=== PATIENT | male | born 1960 | race Caucasian/White ===

== ENCOUNTER 2024-04-12 08:31 | Outpatient (OUT) | payer MEDICARE, MEDICAID, SELFPAY ==
[2024-04-12 08:55] LABS: Basophils Absolute Auto 0.1 10^3/uL (0.0-0.1); Basophils Percent Auto 0.9 % (0.2-2.0); Eosinophils Absolute Auto 0.2 10^3/uL (0.0-0.7); Eosinophils Percent Auto 2.8 % (0.9-7.0); Hematocrit 44.6 % (42.0-54.0); Hemoglobin 14.6 g/dL (14.0-18.0); Immature Granulocytes Abs Auto 0.08 10^3/uL (0.00-0.03); Immature Granulocytes Pct Auto 0.9 % (0.0-0.5); Lymphocytes Absolute Auto 2.4 10^3/uL (1.2-3.8); Lymphocytes Percent Auto 27.6 % (20.5-60.0); Mean Corpuscular HGB Conc 32.7 g/dL (29.9-35.2); Mean Corpuscular Hemoglobin 32.2 pg (25.9-34.0); Mean Corpuscular Volume 98.2 fL (80.0-94.0); Mean Platelet Volume 10.1 fL (9.5-13.5); Monocytes Absolute Auto 0.7 10^3/uL (0.3-0.8); Monocytes Percent Auto 8.5 % (1.7-12.0); Neutrophils Absolute Auto 5.1 10^3/uL (1.4-6.5); Neutrophils Percent Auto 59.3 % (43.0-75.0); Platelet Count 257 10^3/uL (150-450); Red Blood Count 4.54 10^6/uL (4.70-6.10); Red Cell Distribution Width 13.9 % (11.0-15.0); White Blood Count 8.6 10^3/uL (4.0-11.0)
[2024-04-12 09:48] LABS: Prostate Specific Antigen Scrn 16.19 ng/mL (<=4.00)
[2024-04-12 10:16] LABS: Microalbumin Urine Random 1.4 mg/dL (<=30.0)
[2024-04-12 11:18] LABS: Alanine Aminotransferase 22 U/L (16-63); Albumin Globulin Ratio 0.9; Albumin Level 3.5 g/dL (3.4-5.0); Alkaline Phosphatase 75 U/L (46-116); Anion Gap 12.4; Aspartate Amino Transferase 17 U/L (15-37); BUN Creatinine Ratio 12.7; Bilirubin Total 0.3 mg/dL (0.2-1.0); Calcium 10.3 mg/dL (8.5-10.1); Carbon Dioxide 27.1 mmol/L (21.0-32.0); Chloride 102 mmol/L (98-107); Chol HDL Ratio 6.7; Cholesterol 234 mg/dL (<=200); Estimated GFR (African America 52 (>=60 mL/min/1.73m^2); Estimated GFR (Non-African Ame 43 (>=60 mL/min/1.73m^2); Globulin 3.7 g/dL; Glucose 148 mg/dL (74-106); HDL Cholesterol 35 mg/dL (40-60); Potassium 4.5 mmol/L (3.5-5.1); Sodium 137 mmol/L (136-145); Total Protein 7.2 g/dL (6.4-8.2); Triglycerides 276 mg/dL (<=150); VLDL CHOLESTEROL 55.2 mg/dL
== END 2024-04-12 08:32 | disposition home or self-care (01) ==
LOC: LAB 08:31
PROVIDERS: PCP Family Medicine; Visit Provider Family Medicine
DX: N40.0 Benign prostatic hyperplasia without lower urinary tract symptoms (principal); E11.9 Type 2 diabetes mellitus without complications; I10 Essential (primary) hypertension
CPT/HCPCS: 36415; 80053; 80061; 82043; 85025; G0103

== ENCOUNTER 2024-07-12 13:02 | Outpatient (OUT) | payer MEDICARE, MEDICAID, SELFPAY ==
--- NOTE | 2024-07-12 13:29 | MR_ITS ---
The [address] [address] Patient Name: FRANDY BARNES MRN: [id number] date: 1960 Sex: M Assigned Patient Location: LAB Current Patient Location: LAB Accession/Order Number: [id number] Exam Date: 07/12/2024 14:00 Report Date: 07/12/2024 18:09 At the request of: ANUJ URENA Procedure: MR angio head wo con MRA BRAIN WITHOUT CONTRAST, 07/12/2024. HISTORY: Dizziness. COMPARISON: None. TECHNIQUE: Multiplanar, multisequence MRI imaging of the brain without contrast. Axial 3-D time of flight MRA images obtained. Multiple reconstructed MIP images obtained. FINDINGS: Paranasal sinuses clear. Mastoid air cells are clear. Nasopharynx normal. Senior Network [employer] spaces normal. Orbital contents unremarkable. Mild generalized brain atrophy. No hydrocephalus. Mild chronic microvascular ischemic changes. No extra-axial fluid collection or mass effect. No diffusion restriction. No evidence of acute ischemic infarction. No hemorrhagic lesion. No significant stenosis of the distal internal carotid arteries. Anterior cerebral arteries are normal. The middle cerebral arteries are normal. Intradural segments of the vertebral arteries are normal. Basilar artery normal. Posterior cerebral arteries are normal. Cerebellar arteries are patent. No proximal arterial occlusion. No aneurysm or vascular malformation. MR/MR angio head wo con IMPRESSION: 1. No acute ischemic infarction. No intracranial masses. 2. Mild brain atrophy and chronic microvascular ischemic changes. 3. Normal MRA of the brain. Electronically authenticated by: STAN MALONE Date: 07/12/2024 18:09
--- NOTE | 2024-07-12 13:29 | MR_ITS ---
The [place] [id number] Patient Name: FRANDY BARNES MRN: [id number] date: 1960 Sex: M Assigned Patient Location: LAB Current Patient Location: LAB Accession/Order Number: [id number] Exam Date: 07/12/2024 14:00 Report Date: 07/12/2024 18:09 At the request of: ANUJ URENA Procedure: MR angio neck wo con MRA NECK WITHOUT CONTRAST, 07/12/2024. HISTORY: Dizziness. COMPARISON: None. TECHNIQUE: Axial 2-D and 3-D time of flight MRA images obtained through the neck. Multiple reconstructed MIP images obtained. FINDINGS: No stenosis of the left common carotid artery. Atherosclerotic plaque in the proximal left ICA results in a 50% proximal left ICA stenosis. There is some plaque in the proximal right ICA. There is a 25% proximal right ICA stenosis. The left vertebral artery is dominant. No significant stenosis of the left vertebral artery. The right vertebral artery is hypoplastic. There appears to be multiple areas of moderate and severe stenosis throughout the right vertebral artery. MR/MR angio neck wo con IMPRESSION: 1. There is a 50% stenosis of the proximal left ICA. There is a 25% stenosis of the proximal right ICA. 2. Left vertebral artery is dominant. No significant stenosis of the left vertebral artery. 3. Right vertebral artery is hypoplastic. There appears to be multifocal areas of severe stenosis throughout the right vertebral artery in the neck. Recommend follow up CT angiogram of the neck. Electronically authenticated by: STAN MALONE Date: 07/12/2024 18:09
[2024-07-12 13:35] LABS: Estimated GFR (African America 41 (>=60 mL/min/1.73m^2); Estimated GFR (Non-African Ame 34 (>=60 mL/min/1.73m^2)
== END 2024-07-12 13:03 | disposition home or self-care (01) ==
LOC: LAB 13:06
PROVIDERS: PCP Family Medicine; Visit Provider Family Medicine
DX: G45.8 Other transient cerebral ischemic attacks and related syndromes (principal)
CPT/HCPCS: 36415; 70544; 70547; 82565

== ENCOUNTER 2024-11-14 09:12 | Outpatient (OUT) | payer MEDICARE, MEDICAID, SELFPAY ==
--- OUTSIDE RECORDS SUMMARY | 2024-11-14 09:16 | XMS_ITS | CCD ---
Author Organization [facility] Care Team Providers Care Methods Engineer Name Role Phone HOUSE, DR LESLIE Primary Care Unavailable ELIS, DR WALTER Moreno Consulting Unavailabl e REINECK, DR WALTER Moreno Attending Unavailabl e REINECK, DR WALTER Moreno Admitting Unavailabl e CAREN, DARRYL KNOTT Consulting Unavailable HOUSE, DR LESLIE Primary Care Unavailable HOUSE, DR LESLIE Consulting Unavailable HOUSE, DR LESLIE Attending Unavailable HOUSE, DR LESLIE Admitting Unavailable HOUSE, DR LESLIE Primary Care Unavailable KATKO, VÍCTOR Shaw Attending Unavailable KATKO, VÍCTOR Shaw Admitting Unavailable KATKO, VÍCTOR Shaw Consulting Unavailable REIER, RAPHAEL Consulting Unavailable HOUSE, ANUJ Reina Primary Care Unavailable HOUSE, DO ANUJ Reina Attending Unavailable HOUSE, ANUJ P Primary Care Unavailable HOUSE, DO ANUJ P Attending Unavailable HOUSE, ANUJ P Primary Care Unavailable HOUSE, DO ANUJ P Attending Unavailable HOUSE, ANUJ P Primary Care Unavailable HOUSE, DO ANUJ Reina Attending Unavailable HOUSE, DO ANUJ Reina Admitting Unavailable HOUSE, ANUJ P Primary Care Unavailable HOUSE, DO ANUJ P Attending Unavailable Allergies Allergy Classification Reported Allergen(s) Allergy Type Date of Onset Reaction(s) Facility (1 source) Chocolate Drug allergy (disorder) 2 [facility] (1 source) febuxostat Drug Allergy 4 [facility] (2 sources) GRAPEFRUIT EXTRACT; Translations: [Grapefruit] Drug Allergy 4 [facility] (1 source) torsemide Drug Allergy 4 [facility] (1 source) Chocolate; Translations: [Chocolate] Propensity to adverse reactions to food (disorder) [facility] Rep[facility] Problems Active Problems Problem Classification Problem Date Documented Da te Episodic/Chronic Diabetes mellitus without complication (4 sources) Type 2 diabetes mellitus without complications; Translations: [TYPE 2 DM WITHOUT COMPLICATIONS] Onset: 03-24-2022 Chronic E Codes: Fall (1 source) Fall on and from ladder, initial encounter; Translations: [FALL ON AND FROM LADDER INITIAL ENC] Onset: 11-22-2021 Episodic Fracture of upper limb (1 source) Other nondisplaced fracture of base of first metacarpal bone, left hand, initial encounter for closed fracture; Translations: [OTH NDSP FX B 1ST MC BN LH INIT BERNARDO] Onset: 11-22-2021 Episodic Other connective tissue disease (3 sources) Pain in left finger(s); Translations: [PAIN IN LEFT FINGERS] Onset: 11-21-2021 Episodic Substance-related disorders (1 source) Nicotine dependence, cigarettes, uncomplicated; Translations: [NICOTINE DEPEND CIGARETTES UNCOMP] Onset: 05-02-2021 Chronic Past or Other Problems Problem Classification Problem Date Documented Da te Episodic/Chronic Other eye disorders (3 sources) Other specified disorders of eye and adnexa; Translations: [OTHER SPEC DISORDERS EYE AND ADNEXA] Onset: 05-01-2021 Episodic Other eye disorders (1 source) Ocular pain, left eye; Translations: [OCULAR PAIN LEFT EYE] Onset: 05-02-2021 Episodic Superficial injury; contusion (1 source) Injury of conjunctiva and corneal abrasion without foreign body, left eye, initial encounter; Translations: [INJ CONJ AND CA W/O FB LT EYE INITIAL] Onset: 05-02-2021 Episodic Results Test Name Value Interpretation Reference Range Facil it Lab - Other Lab [facility] - Other Lab Results [id number] 1#1.00OTGTIFF [facility] Rad - Other Radiology Report on 07-13-2024 Rad - Other Radiology Report [id number] 1#1.00OTGTIFF [facility] Lab - Other Lab [facility] - Other Lab Results [id number] 24#1.00[facility]GTIFF [facility] Lab - Other Lab Results [id number] 73#1.00[facility]IFF [facility] XR HAND LT MIN 3Von 11-22-19 22 XR HAND LT MIN 3V EXAM: XR HAND LT MIN 3V HISTORY: Unspecified fall Left first and second metacarpal pain status post fall from ladder. COMPARISON: None. FINDINGS: 3 views of the left hand obtained. The distal ulna and radius appear intact. Carpal bones and joint space appear intact. The first metacarpal or base of the thumb demonstrates an oblique intra-articular nondisplaced fracture without appreciable angulation. There is no significant distraction at the articular surface. Remaining osseous structures and joint space about the hand intact. IMPRESSION: 1. Acute intra-articular nondisplaced oblique fracture involving base of first metacarpal. 2. Remaining osseous structures intact. Electronically authenticated by: PHILLIP RAY Date: 2021-11-21 20:20 Normal [facility] CBC AUTO DIFFon 09-26-2021 BASO # 0.1 103/ul Normal 0.0-0.1 [facility] Comment on above: Performed By: #### C BC #### [facility] [address] [place] [address] Dr. Josette Mcfarland Basophils/100 WBC (Bld) 0.6 % Normal 0.2-2.0 [facility] Comment on above: Performed By: #### C BC #### [facility] [address] [place] [address] Dr. Josette Mcfarland EO # 0.2 103/ul Normal 0.0-0.7 [facility] Comment on above: Performed By: #### C BC #### [facility] [address] [place] [address] Dr. Josette Mcfarland Eosinophils/100 WBC (Bld) 1.2 % Normal 0.9-7.0 [facility] Comment on above: Performed By: #### C BC #### [facility] [address] [place] [address] Dr. Josette Mcfarland Erythrocyte distribution width (RBC) [Ratio] 14.1 % Normal 11.0-15.0 [facility] Comment on above: Performed By: #### C BC #### [facility] [address] [place] [address] Dr. Josette Mcfarland Hematocrit (Bld) [Volume fraction] 46.5 % Normal 42.0-54.0 [facility] Comment on above: Performed By: #### C BC #### [facility] [address] [place] [address] Dr. Josette Mcfarland Hemoglobin (Bld) [Mass/Vol] 15.5 g/dL Normal 14.0-18.0 [facility] Comment on above: Performed By: #### C BC #### [facility] [address] [place] [address] Dr. Josette Mcfarland IG # 0.11 10e3/ul Critically high 0.00-0.03 [facility] Comment on above: Performed By: #### C BC #### [facility] [address] [place] [address] Dr. Josette Mcfarland IG % 0.9 % Critically high 0.0-0.5 [facility] Comment on above: Performed By: #### C BC #### [facility] [address] [place] [address] Dr. Josette Mcfarland LYMPH # 2.4 103/ul Normal 1.2-3.8 [facility] Comment on above: Performed By: #### C BC #### [facility] [address] [place] [address] Dr. Josette Mcfarland Lymphocytes/100 WBC (Bld) 18.8 % Critically low 20.5-60.0 [facility] Comment on above: Performed By: #### C BC #### [facility] [address] [place] [address] Dr. Josette Mcfarland MANUAL DIFF REQ NO Normal [facility] Comment on above: Performed By: #### C BC #### [facility] [address] [place] [address] Dr. Josette Mcfarland MCH (RBC) [Entitic mass] 31.6 pg Normal 25.9-34.0 [facility] Comment on above: Performed By: #### C BC #### [facility] [address] [place] [address] Dr. Josette Mcfarland MCHC (RBC) [Mass/Vol] 33.3 g/dL Normal 29.9-35.2 [facility] Comment on above: Performed By: #### C BC #### [facility] [address] [address] [address] Josette Mcfarland MCV (RBC) [Entitic vol] 94.7 fL Critically high 80.0-94.0 [facility] Comment on above: Performed By: #### C BC #### [facility] [address] [place] [address] Dr. Josette Mcfarland MONO # 1.0 103/ul Critically high 0.3-0.8 [facility] Comment on above: Performed By: #### C BC #### [facility] [address] [place] [address] Dr. Josette Mcfarland Monocytes/100 WBC (Bld) 7.6 % Normal 1.7-12.0 [facility] Comment on above: Performed By: #### C BC #### [facility] [address] [place] [address] Dr. Josette Mcfarland NEUT # 8.9 103/ul Critically high 1.4-6.5 [facility] Comment on above: Performed By: #### C BC #### [facility] [address] [place] [address] Dr. Josette Mcfarland Neutrophils/100 WBC (Bld) 70.9 % Normal 43.0-75.0 [facility] Comment on above: Performed By: #### C BC #### [facility] [address] [place] [address] Dr. Josette Mcfarland Platelet mean volume (Bld) [Entitic vol] 10.1 fL Normal 9.5-13.5 [facility] Comment on above: Performed By: #### C BC #### [facility] [address] [place] [address] Dr. Josette Mcfarland PLT 280 103/ul Normal 150-450 [facility] Comment on above: Performed By: #### C BC #### [facility] [address] [place] [address] Dr. Josette Mcfarland RBC 4.91 106/ul Normal 4.70-6.10 [facility] Comment on above: Performed By: #### C BC #### [facility] [address] [address] [address] Josette Mcfarland WBC 12.5 103/ul Critically high 4.0-11.0 [facility] Comment on above: Performed By: #### C BC #### [facility] [address] [address] [address] Josette Mcfarland GLYCOHEMOGLOBIN A1Con 2021 ADA RECOMMENDATION ADA THERAPEUTIC TARGET 6.0 - 7.0 ACTION SUGGESTED > 7.0 Normal [facility] Comment on above: Performed By: #### A 1C #### [facility] [address] [place] [address] Dr. Josette Mcfarland Glucose [Mass/Vol] 131 mg/dL Normal [facility] Comment on above: Performed By: #### A 1C #### [facility] [address] [place] [address] Dr. Josette Mcfarland HbA1c (Bld) [Mass fraction] 6.2 % Critically high <=6.0 [facility] Comment on above: Performed By: #### A 1C #### [facility] [address] [place] [address] Dr. Josette Mcfarland MICROALBUMIN, RAND URon 09-04 mALB <1.3 Normal <=30.0 [facility] Comment on above: Performed By: #### M ALBR #### [facility] [address] [place] [address] Dr. Josette Mcfarland PROF 14(COMP METB)on 022 Albumin [Mass/Vol] 3.7 g/dL Normal 3.4-5.0 [facility] Comment on above: Performed By: #### C MP #### [facility] [address] [place] [address] Dr. Josette Mcfarland Albumin/Globulin [Mass ratio] 1.0 {ratio} Normal [facility] Comment on above: Performed By: #### C MP #### [facility] [address] [address] [address] Josette Mcfarland ALP [Catalytic activity/Vol] 79 U/L Normal 46-116 [facility] Comment on above: Performed By: #### C MP #### [facility] [address] [address] [address] Josette Mcfarland ALT [Catalytic activity/Vol] 21 U/L Normal 16-63 [facility] Comment on above: Performed By: #### C MP #### [facility] [address] [address] [address] Josette Mcfarland Anion gap [Moles/Vol] 14.6 mmol/L Normal [facility] Comment on above: Performed By: #### C MP #### [facility] [address] [address] [address] Josette Mcfarland AST [Catalytic activity/Vol] 17 U/L Normal 15-37 [facility] Comment on above: Performed By: #### C MP #### [facility] [address] [address] [address] Josette Mcfarland Bilirubin [Mass/Vol] 0.5 mg/dL Normal 0.2-1.3 [facility] Comment on above: Performed By: #### C MP #### [facility] [address] [address] [address] Josette Mcfarland Calcium [Mass/Vol] 9.2 mg/dL Normal 8.5-10.1 [facility] Comment on above: Performed By: #### C MP #### [facility] [address] [address] [address] Josette Mcfarland Chloride [Moles/Vol] 104 mmol/L Normal 98-107 [facility] Comment on above: Performed By: #### C MP #### [facility] [address] [address] [address] Josette Mcfarland CO2 [Moles/Vol] 24.8 mmol/L Normal 22.0-30.0 [facility] Comment on above: Performed By: #### C MP #### [facility] [address] [address] [address] Josette Mcfarland Creatinine [Mass/Vol] 1.72 mg/dL Critically high 0.66-1.25 [facility] Comment on above: Performed By: #### C MP #### [facility] [address] [address] [address] Josette Mcfarland EGFR-AF TANZANIAN 50 mL/min/1.73m2 Critically low >=60 [facility] Comment on above: Performed By: #### C MP #### [facility] [address] [address] [address] Josette Mcfarland EGFR-NON AF TANZANIAN 41 mL/min/1.73m2 Critically low >=60 [facility] Comment on above: Performed By: #### C MP #### [facility] [address] [address] [address] Josette Mcfarland Globulin (S) [Mass/Vol] 3.8 g/dL Normal [facility] Comment on above: Performed By: #### C MP #### [facility] [address] [address] [address] Josette Mcfarland Glucose [Mass/Vol] 137 mg/dL Critically high 74-[address] [facility] Comment on above: Performed By: #### C MP #### [facility] [address] [address] [address] Josette Mcfarland Potassium [Moles/Vol] 4.4 mmol/L Normal 3.4-5.0 [facility] Comment on above: Performed By: #### C MP #### [facility] [address] [address] [address] Josette Mcfarland Protein [Mass/Vol] 7.5 g/dL Normal 6.1-8.2 [facility] Comment on above: Performed By: #### C MP #### [facility] [address] [address] [address] Josette Mcfarland Sodium [Moles/Vol] 139 mmol/L Normal 137-145 [facility] Comment on above: Performed By: #### C MP #### [facility] [address] [address] [address] Josette Mcfarland Urea nitrogen [Mass/Vol] 30.0 mg/dL Critically high 7.0-18.0 [facility] Comment on above: Performed By: #### C MP #### [facility] [address] [place], [place] [address] Dr. Josette Mcfarland Urea nitrogen/Creatinine [Mass ratio] 17.4 mg/mg Normal [facility] Comment on above: Performed By: #### C MP #### [facility] [address] [place], [place] [address] Dr. Josette Mcfarland Encounters Encounter Date Encounter Type Care Provider Facility Start: 11-01-2024 ambulatory ANUJ URENA Facilit y:[facility] Start: 10-26-2024 ambulatory ANUJ Reina HOUSE Facilit y:[facility] Start: 08-17-2024 ambulatory ANUJ Reina HOUSE Facilit y:[facility] Start: 06-22-2024 End: 06-22-2024 ambulatory DO ANUJ URENA [facility] Start: 04-27-2024 End: 04-27-2024 ambulatory ANUJ URENA Facility:[facility] Start: 11-21-2021 End: 11-21-[address] ANUJ URENA Facility:[facility] Start: 09-26-2021 End: 09-27-[address] ANUJ URENA Facility:[facility] Start: 05-01-2021 End: 05-01-[address] ANUJ URENA Facility:[facility] Payers Date Payer Category Payer Private Health Insurance [id number] 2022 Private Health Insurance [id number] 1960 Unknown [id number] 2.16.84 [id number] 1960 Unknown [id number] 2.16.84 [id number] 1962 Unknown [id number] 2.16.84 [id number] 1962 Unknown [id number] 2.16.8 [id number] 1962 Unknown [id number] 2.16.8 [id number] 1962 Unknown [id number] 2.16.8 [id number] 1962 Unknown [id number] 2.16.8 [id number] 1962 Unknown [id number] 2.16.8 [id number] 1957 Medicaid [id number] 1957 Medicare [id number] Medication management note 10-11-2024 Note Date & Type Note Facility 10-11-2024 Note Entered by JUWAN URENA DO on October 11, 2024 07:42:43 EDT From: ANUJ URENA DO To: [facility] Sent: 10/11/2024 07:42:43 EDT Subject: Medication Management Submitted: Complete:esomeprazole (esomeprazole 40 mg oral delayed release capsule) Signed by ANUJ URENA DO 10/11/2024 07:42:00 EDT Approved with modifications: esomeprazole (esomeprazole magnesium 40 mg capsule,delayed release) TAKE 1 CAPSULE BY MOUTH DAILY Qty: 30 cap(s) Days Supply: 30 Refills: 5 Substitutions Allowed Route To Pharmacy - [facility] From: [facility] To: ANUJ URENA DO Sent: October 10, 2024 12:23:47 PM CDT Subject: Medication Management Due: October 11, 2024 12:10:11 AM CDT On Hold Pending Signature Drug: esomeprazole (esomeprazole 40 mg oral delayed release capsule), TAKE 1 CAPSULE BY MOUTH DAILY Quantity: 30 cap(s) Days Supply: 30 Refills: 5 Substitutions Allowed Notes from Pharmacy: This prescription was filled on 01/09/2024. Any refills authorized will be placed on file. Dispensed Drug: esomeprazole (esomeprazole 40 mg oral delayed release capsule), TAKE 1 CAPSULE BY MOUTH DAILY Quantity: 30 cap(s) Days Supply: 30 Refills: 5 Substitutions Allowed Notes from Pharmacy: [facility] Medication management note 10-04-2024 Note Date & Type Note Facility 10-04-2024 Note Entered by JUWAN URENA DO on October 04, 2024 16:06:58 EDT From: ANUJ URENA DO To: [facility] Sent: 10/04/2024 16:06:58 EDT Subject: Medication Management Submitted: Complete:SITagliptin (Januvia 100 mg oral tablet) Signed by ANUJ URENA DO 10/04/2024 16:06:00 EDT Approved with modifications: SITagliptin (Januvia 100 mg tablet) TAKE 1 TABLET BY MOUTH DAILY Qty: 30 tab(s) Days Supply: 30 Refills: 5 Substitutions Allowed Route To Pharmacy - [facility] From: [facility] To: ANUJ URENA DO Sent: October 04, 2024 8:58:37 AM CDT Subject: Medication Management Due: October 05, 2024 12:04:13 AM CDT On Hold Pending Signature Drug: SITagliptin (Januvia 100 mg oral tablet), TAKE 1 TABLET BY MOUTH DAILY Quantity: 30 tab(s) Days Supply: 30 Refills: 5 Substitutions Allowed Notes from Pharmacy: This prescription was filled on 01/09/2024. Any refills authorized will be placed on file. Dispensed Drug: SITagliptin (Januvia 100 mg oral tablet), TAKE 1 TABLET BY MOUTH DAILY Quantity: 30 tab(s) Days Supply: 30 Refills: 5 Substitutions Allowed Notes from Pharmacy: [facility] Medication management note 08-29-2024 Note Date & Type Note Facility 08-29-2024 Note Entered by JUWAN URENA DO on August 29, 2024 08:19:34 EST From: ANUJ URENA DO To: [facility] Sent: 08/29/2024 08:19:34 EST Subject: Medication Management Submitted: Complete:OXcarbazepine (OXcarbazepine 150 mg oral tablet) Signed by ANUJ URENA DO 08/29/2024 08:19:00 EST Approved with modifications: OXcarbazepine (oxcarbazepine 150 mg tablet) TAKE 1 TABLET BY MOUTH TWICE DAILY Qty: 180 tab(s) Days Supply: 90 Refills: 1 Substitutions Allowed Route To Pharmacy - [facility] Note from Pharmacy: This prescription was filled on 06/10/2024. Any refills authorized will be placed on file. From: [facility] To: ANUJ URENA DO Sent: August 29, 2024 7:04:24 AM COMPUTER ART INSTRUCTOR Subject: Medication Management Due: August 30, 2024 12:11:10 AM COMPUTER ART INSTRUCTOR On Hold Pending Signature Drug: OXcarbazepine (OXcarbazepine 150 mg oral tablet), TAKE 1 TABLET BY MOUTH TWICE DAILY Quantity: 180 tab(s) Days Supply: 90 Refills: 1 Substitutions Allowed Notes from Pharmacy: Dispensed Drug: OXcarbazepine (OXcarbazepine 150 mg oral tablet), TAKE 1 TABLET BY MOUTH TWICE DAILY Quantity: 180 tab(s) Days Supply: 90 Refills: 1 Substitutions Allowed Notes from Pharmacy: This prescription was filled on 06/10/2024. Any refills authorized will be placed on file. [facility] Medication management note 08-29-2024 Note Date & Type Note Facility 08-29-2024 Note Entered by JUWAN URENA DO on August 29, 2024 07:41:23 EST From: ANUJ URENA DO To: [facility] Sent: 08/29/2024 07:41:23 EST Subject: Medication Management Submitted: Complete:insulin degludec (Tresiba 100 units/mL subcutaneous solution) Signed by ANUJ URENA DO 08/29/2024 07:41:00 EST Approved with modifications: insulin degludec (Tresiba U-100 Insulin 100 unit/mL subcutaneous solution) INJECT 16 UNITS SUBCUTANEOUSLY (UNDER THE SKIN) DAILY Qty: 10 mL Days Supply: 62 Refills: 5 Substitutions Allowed Route To Pharmacy - [facility] From: [facility] To: ANUJ URENA DO Sent: August 28, 2024 7:02:12 AM COMPUTER ART INSTRUCTOR Subject: Medication Management Due: August 29, 2024 12:19:30 AM COMPUTER ART INSTRUCTOR On Hold Pending Signature Drug: insulin degludec (Tresiba 100 units/mL subcutaneous solution), 16 unit(s) Subcutaneous Daily Quantity: 10 mL Days Supply: 0 Refills: 0 Substitutions Allowed Notes from Pharmacy: Dispensed Drug: insulin degludec (Tresiba 100 units/mL subcutaneous solution), INJECT 16 UNITS SUBCUTANEOUSLY (UNDER THE SKIN) DAILY Quantity: 10 mL Days Supply: 62 Refills: 0 Substitutions Allowed Notes from Pharmacy: [facility] Medication management note 08-22-2024 Note Date & Type Note Facility 08-22-2024 Note Entered by JUWAN URENA DO on August 22, 2024 10:26:53 EST From: ANUJ URENA DO To: [facility] Sent: 08/22/2024 10:26:53 EST Subject: Medication Management Submitted: Complete:torsemide (torsemide 5 mg oral tablet) Signed by ANUJ URENA DO 08/22/2024 10:26:00 EST Submitted: Complete:lisinopril (lisinopril 2.5 mg oral tablet) Signed by ANUJ URENA DO 08/22/2024 10:26:00 EST Approved with modifications: lisinopril (lisinopril 2.5 mg tablet) TAKE 1 TABLET BY MOUTH DAILY Qty: 90 tab(s) Days Supply: 90 Refills: 1 Substitutions Allowed Route To [facility] Note from Pharmacy: This prescription was filled on 06/03/2024. Any refills authorized will be placed on file. Approved with modifications: torsemide (torsemide 5 mg tablet) TAKE 1 TABLET BY MOUTH DAILY Qty: 90 tab(s) Days Supply: 90 Refills: 1 Substitutions Allowed Route To [facility] Note from Pharmacy: This prescription was filled on 06/03/2024. Any refills authorized will be placed on file. From: [facility] To: ANUJ URENA DO Sent: August 22, 2024 7:04:53 AM COMPUTER ART INSTRUCTOR Subject: Medication Management Due: August 23, 2024 12:02:12 AM COMPUTER ART INSTRUCTOR On Hold Pending Signature Drug: lisinopril (lisinopril 2.5 mg oral tablet), TAKE 1 TABLET BY MOUTH DAILY Quantity: 90 tab(s) Days Supply: 90 Refills: 1 Substitutions Allowed Notes from Pharmacy: Dispensed Drug: lisinopril (lisinopril 2.5 mg oral tablet), TAKE 1 TABLET BY MOUTH DAILY Quantity: 90 tab(s) Days Supply: 90 Refills: 1 Substitutions Allowed Notes from Pharmacy: This prescription was filled on 06/03/2024. Any refills authorized will be placed on file. On Hold Pending Signature Drug: torsemide (torsemide 5 mg oral tablet), TAKE 1 TABLET BY MOUTH DAILY Quantity: 90 tab(s) Days Supply: 90 Refills: 1 Substitutions Allowed Notes from Pharmacy: Dispensed Drug: torsemide (torsemide 5 mg oral tablet), TAKE 1 TABLET BY MOUTH DAILY Quantity: 90 tab(s) Days Supply: 90 Refills: 1 Substitutions Allowed Notes from Pharmacy: This prescription was filled on 06/03/2024. Any refills authorized will be placed on file. [facility] Medication management note 08-16-2024 Note Date & Type Note Facility 08-16-2024 Note Entered by JUWAN URENA DO on August 16, 2024 08:35:59 EST From: ANUJ URENA DO To: [facility] Sent: 08/16/2024 08:35:59 EST Subject: Medication Management Approved with modifications: !-[facility] Request. (TRUEplus Insulin 0.3 mL 31 gauge x 5/16 syringe) USE DIRECTED WITH insulin Qty: 50 EA Days Supply: 50 Refills: 1 Substitutions Allowed Route To Pharmacy - [facility] Note from Pharmacy: This prescription was filled on 07/07/2024. Any refills authorized will be placed on file. From: [facility] To: ANUJ URENA DO Sent: August 16, 2024 7:01:06 AM COMPUTER ART INSTRUCTOR Subject: Medication Management Due: August 17, 2024 12:03:12 AM COMPUTER ART INSTRUCTOR On Hold Pending Signature Drug: Trueplus insulin syringe, Use a s directed for insulin. Trueplus insulin 0.3mL 31gauge x 5/16 Quantity: 50 EA Days Supply: 0 Refills: 0 Substitutions Allowed Notes from Pharmacy: Dispensed Drug: TRUEplus Insulin 0.3 mL 31 gauge x 5/16 syringe, USE DIRECTED WITH insulin Quantity: 50 EA Days Supply: 50 Refills: 1 Substitutions Allowed Notes from Pharmacy: This prescription was filled on 07/07/2024. Any refills authorized will be placed on file. [facility] Medication management note 06-01-2024 Note Date & Type Note Facility 06-01-2024 Note Entered by JUWAN URENA DO on June 01, 2024 08:41:15 EST From: ANUJ URENA DO To: [facility] Sent: 06/01/2024 08:41:14 EST Subject: Medication Management Submitted: Complete:simvastatin (simvastatin 20 mg oral tablet) Signed by ANUJ URENA DO 06/01/2024 08:41:00 EST Approved with modifications: simvastatin (simvastatin 20 mg tablet) TAKE 1 TABLET BY MOUTH EVERY EVENING Qty: 30 tab(s) Days Supply: 30 Refills: 5 Substitutions Allowed Route To Pharmacy - [facility] Note from Pharmacy: This prescription was filled on 04/12/2024. Any refills authorized will be placed on file. From: [facility] To: ANUJ URENA DO Sent: June 01, 2024 7:00:31 AM COMPUTER ART INSTRUCTOR Subject: Medication Management Due: June 02, 2024 12:03:57 AM COMPUTER ART INSTRUCTOR On Hold Pending Signature Drug: simvastatin (simvastatin 20 mg oral tablet), 1 tab(s) Oral qPM,Instr:TAKE 1 TABLET BY MOUTH DAILY Quantity: 30 tab(s) Days Supply: 0 Refills: 4 Substitutions Allowed Notes from Pharmacy: Dispensed Drug: simvastatin (simvastatin 20 mg oral tablet), TAKE 1 TABLET BY MOUTH EVERY EVENING Quantity: 30 tab(s) Days Supply: 30 Refills: 5 Substitutions Allowed Notes from Pharmacy: This prescription was filled on 04/12/2024. Any refills authorized will be placed on file. [facility] Medication management note 03-29-2024 Note Date & Type Note Facility 03-29-2024 Note Entered by JUWAN URENA DO on March 29, 2024 08:33:25 EDT From: ANUJ URENA DO To: [facility] Sent: 03/29/2024 08:33:25 EDT Subject: Medication Management Submitted: Complete:SITagliptin (Januvia 100 mg oral tablet) Signed by ANUJ URENA DO 03/29/2024 08:33:00 EDT Submitted: Complete:esomeprazole (esomeprazole 40 mg oral delayed release capsule) Signed by ANUJ URENA DO 03/29/2024 08:33:00 EDT Approved with modifications: esomeprazole (esomeprazole magnesium 40 mg capsule,delayed release) TAKE 1 CAPSULE BY MOUTH DAILY Qty: 30 cap(s) Days Supply: 30 Refills: 5 Substitutions Allowed Route To Pharmacy - [facility] Note from Pharmacy: This prescription was filled on 01/09/2024. Any refills authorized will be placed on file. Approved with modifications: SITagliptin (Januvia 100 mg tablet) TAKE 1 TABLET BY MOUTH DAILY Qty: 30 tab(s) Days Supply: 30 Refills: 5 Substitutions Allowed Route To Pharmacy - [facility] Note from Pharmacy: This prescription was filled on 01/09/2024. Any refills authorized will be placed on file. From: [facility] To: ANUJ URENA DO Sent: March 29, 2024 7:02:44 AM CDT Subject: Medication Management Due: March 30, 2024 12:12:18 AM CDT On Hold Pending Signature Drug: esomeprazole (esomeprazole 40 mg oral delayed release capsule), 1 cap(s) Oral Daily,Instr:TAKE 1 CAPSULE BY MOUTH EVERY DAY Quantity: 30 cap(s) Days Supply: 0 Refills: 4 Substitutions Allowed Notes from Pharmacy: Dispensed Drug: esomeprazole (esomeprazole 40 mg oral delayed release capsule), TAKE 1 CAPSULE BY MOUTH DAILY Quantity: 30 cap(s) Days Supply: 30 Refills: 5 Substitutions Allowed Notes from Pharmacy: This prescription was filled on 01/09/2024. Any refills authorized will be placed on file. On Hold Pending Signature Drug: SITagliptin (Januvia 100 mg oral tablet), 1 tab(s) Oral Daily,Instr:TAKE 1 TABLET BY MOUTH EVERY DAY Quantity: 30 tab(s) Days Supply: 0 Refills: 4 Substitutions Allowed Notes from Pharmacy: Dispensed Drug: SITagliptin (Januvia 100 mg oral tablet), TAKE 1 TABLET BY MOUTH DAILY Quantity: 30 tab(s) Days Supply: 30 Refills: 5 Substitutions Allowed Notes from Pharmacy: This prescription was filled on 01/09/2024. Any refills authorized will be placed on file. [facility] Medication management note 03-02-2024 Note Date & Type Note Facility 03-02-2024 Note Entered by JUWAN URENA DO on March 02, 2024 09:57:14 EDT From: ANUJ URENA DO To: [facility] Sent: 03/02/2024 09:57:14 EDT Subject: Medication Management Submitted: Complete:lisinopril (lisinopril 2.5 mg oral tablet) Signed by ANUJ URENA DO 03/02/2024 09:57:00 EDT Submitted: Complete:torsemide (torsemide 5 mg oral tablet) Signed by ANUJ URENA DO 03/02/2024 09:57:00 EDT Submitted: Complete:OXcarbazepine (OXcarbazepine 150 mg oral tablet) Signed by ANUJ URENA DO 03/02/2024 09:57:00 EDT Approved with modifications: OXcarbazepine (oxcarbazepine 150 mg tablet) TAKE 1 TABLET BY MOUTH TWICE DAILY Qty: 180 tab(s) Days Supply: 90 Refills: 1 Substitutions Allowed Route To [facility] Approved with modifications: torsemide (torsemide 5 mg tablet) TAKE 1 TABLET BY MOUTH DAILY Qty: 90 tab(s) Days Supply: 90 Refills: 1 Substitutions Allowed Route To [facility] Approved with modifications: lisinopril (lisinopril 2.5 mg tablet) TAKE 1 TABLET BY MOUTH DAILY Qty: 90 tab(s) Days Supply: 90 Refills: 1 Substitutions Allowed Route To [facility] From: [facility] To: ANUJ URENA DO Sent: March 02, 2024 8:28:56 AM CDT Subject: Medication Management Due: March 03, 2024 12:20:23 AM CDT On Hold Pending Signature Drug: OXcarbazepine (OXcarbazepine 150 mg oral tablet), 1 tab(s) Oral BID,Instr:TAKE 1 TABLET BY MOUTH TWICE DAILY Quantity: 180 tab(s) Days Supply: 0 Refills: 0 Substitutions Allowed Notes from Pharmacy: Dispensed Drug: OXcarbazepine (OXcarbazepine 150 mg oral tablet), TAKE 1 TABLET BY MOUTH TWICE DAILY Quantity: 180 tab(s) Days Supply: 90 Refills: 1 Substitutions Allowed Notes from Pharmacy: On Hold Pending Signature Drug: torsemide (torsemide 5 mg oral tablet), 1 tab(s) Oral Daily,Instr:TAKE 1 TABLET BY MOUTH DAILY Quantity: 90 tab(s) Days Supply: 0 Refills: 0 Substitutions Allowed Notes from Pharmacy: Dispensed Drug: torsemide (torsemide 5 mg oral tablet), TAKE 1 TABLET BY MOUTH DAILY Quantity: 90 tab(s) Days Supply: 90 Refills: 1 Substitutions Allowed Notes from Pharmacy: On Hold Pending Signature Drug: lisinopril (lisinopril 2.5 mg oral tablet), 1 tab(s) Oral Daily,Instr:TAKE 1 TABLET BY MOUTH DAILY Quantity: 90 tab(s) Days Supply: 0 Refills: 0 Substitutions Allowed Notes from Pharmacy: Dispensed Drug: lisinopril (lisinopril 2.5 mg oral tablet), TAKE 1 TABLET BY MOUTH DAILY Quantity: 90 tab(s) Days Supply: 90 Refills: 1 Substitutions Allowed Notes from Pharmacy: [facility] Summary Purpose Family History No Family History Records FoundNo Family History Records Found Advance Directives No Advanced Directives Records FoundNo Advanced Directives Records Found Additional Source Comments (unrecognized sect ion and content) No Status Records FoundNo Status Records Found INFORMATION SOURCE (unrecogn ized section and content) DATE CREATED AUTHOR 11/23/2021 [facility] DATE CREATED AUTHOR 'S LEXXIZ ATJAYDA 11/02/2024 [facility] FOR RECORDS PERTAINING TO PATIENTS WHO ARE OR HAVE BEEN ENROLLED IN A CHEMICAL DEPENDENCY/SUBSTANCEABUSE PROGRAM, SOME INFORMATION MAY BE OMITTED. This clinical summary was aggregated from multiple sources. Caution should be exercised in using it in the provision of clinical care. This summary normalizes information from multiple sources, and as a consequence, information in this document may materially change the coding, format and clinical context of patient data. In addition, data may be omitted in some cases. CLINICAL DECISIONS SHOULD BE BASED ON THE PRIMARY CLINICAL RECORDS. [employer] provides no warranty or guarantee of the accuracy or completeness of information in this document.
[2024-11-14 09:34] LABS: Basophils Absolute Auto 0.1 10^3/uL (0.0-0.1); Basophils Percent Auto 0.7 % (0.2-2.0); Eosinophils Absolute Auto 0.2 10^3/uL (0.0-0.7); Eosinophils Percent Auto 2.3 % (0.9-7.0); Hematocrit 44.2 % (42.0-54.0); Hemoglobin 14.8 g/dL (14.0-18.0); Immature Granulocytes Abs Auto 0.12 10^3/uL (0.00-0.03); Immature Granulocytes Pct Auto 1.5 % (0.0-0.5); Lymphocytes Absolute Auto 2.4 10^3/uL (1.2-3.8); Mean Corpuscular HGB Conc 33.5 g/dL (29.9-35.2); Mean Corpuscular Hemoglobin 32.7 pg (25.9-34.0); Mean Corpuscular Volume 97.6 fL (80.0-94.0); Mean Platelet Volume 9.7 fL (9.5-13.5); Monocytes Absolute Auto 0.7 10^3/uL (0.3-0.8); Neutrophils Absolute Auto 4.7 10^3/uL (1.4-6.5); Neutrophils Percent Auto 57.5 % (43.0-75.0); Platelet Count 257 10^3/uL (150-450); Red Blood Count 4.53 10^6/uL (4.70-6.10); Red Cell Distribution Width 14.7 % (11.0-15.0); White Blood Count 8.2 10^3/uL (4.0-11.0)
[2024-11-14 10:12] LABS: Estimated Average Glucose 126 mg/dL
[2024-11-14 10:34] LABS: Alanine Aminotransferase 20 U/L (16-63); Albumin Level 3.5 g/dL (3.4-5.0); Alkaline Phosphatase 73 U/L (46-116); Anion Gap 11.9; Aspartate Amino Transferase 12 U/L (15-37); BUN Creatinine Ratio 18.7; Bilirubin Total 0.3 mg/dL (0.2-1.0); Calcium 9.4 mg/dL (8.5-10.1); Chloride 106 mmol/L (98-107); Chol HDL Ratio 5.8; Cholesterol 225 mg/dL (<=200); Estimated GFR (African America 55 (>=60 mL/min/1.73m^2); Estimated GFR (Non-African Ame 46 (>=60 mL/min/1.73m^2); Globulin 3.6 g/dL; Glucose 135 mg/dL (74-106); HDL Cholesterol 39 mg/dL (40-60); Potassium 4.9 mmol/L (3.5-5.1); Sodium 140 mmol/L (136-145); Total Protein 7.1 g/dL (6.4-8.2); Triglycerides 161 mg/dL (<=150); VLDL CHOLESTEROL 32.2 mg/dL
[2024-11-14 10:35] LABS: Microalbumin Urine Random 1.6 mg/dL (<=30.0)
== END 2024-11-14 09:13 | disposition home or self-care (01) ==
LOC: LAB 09:13
PROVIDERS: PCP Family Medicine; Visit Provider Family Medicine
DX: I12.9 Hypertensive chronic kidney disease with stage 1 through stage 4 chronic kidney disease, or unspecified chronic kidney disease (principal); N18.9 Chronic kidney disease, unspecified; J44.1 Chronic obstructive pulmonary disease with (acute) exacerbation; E11.9 Type 2 diabetes mellitus without complications
CPT/HCPCS: 36415; 80053; 80061; 82043; 83036; 85025

== ENCOUNTER 2024-12-06 18:52 | Emergency (ER) | payer MEDICARE, MEDICAID, SELFPAY ==
--- OUTSIDE RECORDS SUMMARY | 2024-12-06 19:00 | XMS_ITS | CCD ---
Author Organization [facility] Care Team Providers Care Employee Benefits Administrator Name Role Phone HOUSE, DR LESLIE Primary [...] Unavailable KATKO, VÍCTOR Shaw Consulting Unavailable REIER, RAPHEAL Consulting Unavailable HOUSE, ANUJ Reina Primary Care [...] source) Chocolate Drug allergy (disorder) 2 [facility] Repository (1 source) febuxostat Drug Allergy 4 [facility] (2 sources) GRAPEFRUIT EXTRACT; Translations: [Grapefruit] Drug Allergy 4 [facility] (1 source) torsemide Drug Allergy 4 [facility] Rep[facility] (1 source) Chocolate; Translations: [Chocolate] Propensity to adverse reactions to food (disorder) [facility] Repository Problems Active Problems Problem Classification [...] Test Name Value Interpretation Reference Range Facil ity Lab - Other Lab [facility] - Other Lab Results [id number] 218#1.00OTGTIFF [facility] Lab - Other Lab [facility] - Other Lab Results [id number] 1#1.00OTGTIFF [facility] Rad - Other Radiology Report on 07-13-2024 Rad - Other Radiology Report [id number] 1#1.00OTGTIFF [facility] Lab - Other Lab [facility] - Other Lab Results [id number] 24#1.00OTGTIFF Normal [facility] Lab - Other Lab Results [id number] 73#1.00OTGTIFF Normal [facility] XR HAND LT MIN 3Von 11-22-19 [...] PHILLIP RAY Date: 2021-11-21 20:20 Normal [facility] CBC AUTO DIFFon 09-26-2021 BASO # 0.1 103/ul Normal 0.0-0.1 [facility] Comment on above: Performed By: #### C BC #### [facility] [address] [address] [address] Josette Mcfarland Basophils/100 WBC (Bld) 0.6 % Normal 0.2-2.0 [facility] Comment on above: Performed By: #### C BC #### [facility] [address] [address] [address] Josette Mcfarland EO # 0.2 103/ul Normal 0.0-0.7 [facility] Comment on above: Performed By: #### C BC #### [facility] [address] [address] [address] Josette Mcfarland Eosinophils/100 WBC (Bld) 1.2 % Normal 0.9-7.0 [facility] Comment on above: Performed By: #### C BC #### [facility] [address] [place] [address] Dr. Josette Mcfarland Erythrocyte distribution width (RBC) [Ratio] 14.1 % Normal 11.0-15.0 [facility] Comment on above: Performed By: #### C BC #### [facility] [address] [address] [address] Josette Mcfarland Hematocrit (Bld) [Volume fraction] 46.5 % Normal 42.0-54.0 [facility] Comment on above: Performed By: #### C BC #### [facility] [address] [address] [address] Josette Mcfarland Hemoglobin (Bld) [Mass/Vol] 15.5 g/dL Normal 14.0-18.0 [facility] Comment on above: Performed By: #### C BC #### [facility] [address] [place] [address] Dr. Josette Mcfarland IG # 0.11 10e3/ul Critically high 0.00-0.03 [facility] Comment on above: Performed By: #### C BC #### [facility] [address] [place] [address] Dr. Josette Mcfarland IG % 0.9 % Critically high 0.0-0.5 [facility] Comment on above: Performed By: #### C BC #### [facility] [address] [address] [address] Josette Mcfarland LYMPH # 2.4 103/ul Normal 1.2-3.8 [facility] Comment on above: Performed By: #### C BC #### [facility] [address] [address] [address] Josette Mcfarland Lymphocytes/100 WBC (Bld) 18.8 % Critically low 20.5-60.0 [facility] Comment on above: Performed By: #### C BC #### [facility] [address] [address] [address] Josette Mcfarland MANUAL DIFF REQ NO Normal [facility] Comment on above: Performed By: #### C BC #### [facility] [address] [place] [address] Dr. Josette Mcfarland MCH (RBC) [Entitic mass] 31.6 pg Normal 25.9-34.0 [facility] Comment on above: Performed By: #### C BC #### [facility] [address] [address] [address] Josette Mcfarland MCHC (RBC) [Mass/Vol] 33.3 g/dL Normal 29.9-35.2 [facility] Comment on above: Performed By: #### C BC #### [facility] [address] [address] [address] Josette Mcfarland MCV (RBC) [Entitic vol] 94.7 fL Critically high 80.0-94.0 [facility] Comment on above: Performed By: #### C BC #### [facility] [address] [address] [address] Josette Mcfarland MONO # 1.0 103/ul Critically high 0.3-0.8 [facility] Comment on above: Performed By: #### C BC #### [facility] [address] [place] [address] Dr. Josette Mcfarland Monocytes/100 WBC (Bld) 7.6 % Normal 1.7-12.0 [facility] Comment on above: Performed By: #### C BC #### [facility] [address] [address] [address] Josette Mcfarland NEUT # 8.9 103/ul Critically high 1.4-6.5 [facility] Comment on above: Performed By: #### C BC #### [facility] [address] [place] [address] Dr. Josette Mcfarland Neutrophils/100 WBC (Bld) 70.9 % Normal 43.0-75.0 [facility] Comment on above: Performed By: #### C BC #### [facility] [address] [place] [address] Dr. Josette Mcfarland Platelet mean volume (Bld) [Entitic vol] 10.1 fL Normal 9.5-13.5 [facility] Comment on above: Performed By: #### C BC #### [facility] [address] [place] [address] Dr. Josette Mcfarland PLT 280 103/ul Normal 150-450 [facility] Comment on above: Performed By: #### C BC #### [facility] [address] [address] [address] Josette Mcfarland RBC 4.91 106/ul Normal 4.70-6.10 [facility] Comment on above: Performed By: #### C BC #### [facility] [address] [address] [address] Josette Mcfarland WBC 12.5 103/ul Critically high 4.0-11.0 [facility] Comment on above: Performed By: #### C BC #### [facility] [address] [address] [address] Josette Mcfarland GLYCOHEMOGLOBIN A1Con 2021 ADA RECOMMENDATION ADA THERAPEUTIC TARGET 6.0 - 7.0 ACTION SUGGESTED > 7.0 Normal [facility] Comment on above: Performed By: #### A 1C #### [facility] [address] [place] [address] Dr. Josette Mcfarland Glucose [Mass/Vol] 131 mg/dL Normal [facility] Comment on above: Performed By: #### A 1C #### [facility] [address] [address] [address] Josette Mcfarland HbA1c (Bld) [Mass fraction] 6.2 % Critically high <=6.0 [facility] Comment on above: Performed By: #### A 1C #### [facility] [address] [place] [address] Dr. Josette Mcfarland MICROALBUMIN, RAND URon 09-04 mALB <1.3 Normal <=30.0 [facility] Comment on above: Performed By: #### M ALBR #### [facility] [address] [place] [address] Dr. Josette Mcfarland PROF 14(COMP METB)on 022 Albumin [Mass/Vol] 3.7 g/dL Normal 3.4-5.0 [facility] Comment on above: Performed By: #### C MP #### [facility] [address] [place] [address] Dr. Josette Mcfarland Albumin/Globulin [Mass ratio] 1.0 {ratio} Normal [facility] Comment on above: Performed By: #### C MP #### [facility] [address] [address] [address] Josette Mcfarland ALP [Catalytic activity/Vol] 79 U/L Normal 46-116 [facility] Comment on above: Performed By: #### C MP #### [facility] [address] [address] [address] Josette Mcfarland ALT [Catalytic activity/Vol] 21 U/L Normal 16-63 [facility] Comment on above: Performed By: #### C MP #### [facility] [address] [address] [address] Josette Mcfarland Anion gap [Moles/Vol] 14.6 mmol/L Normal [facility] Comment on above: Performed By: #### C MP #### [facility] [address] [place] [address] Dr. Josette Mcfarland AST [Catalytic activity/Vol] 17 U/L Normal 15-37 [facility] Comment on above: Performed By: #### C MP #### [facility] [address] [place] [address] Dr. Josette Mcfarland Bilirubin [Mass/Vol] 0.5 mg/dL Normal 0.2-1.3 [facility] Comment on above: Performed By: #### C MP #### [facility] [address] [place] [address] Dr. Josette Mcfarland Calcium [Mass/Vol] 9.2 mg/dL Normal 8.5-10.1 [facility] Comment on above: Performed By: #### C MP #### [facility] [address] [place] [address] Dr. Josette Mcfarland Chloride [Moles/Vol] 104 mmol/L Normal 98-107 [facility] Comment on above: Performed By: #### C MP #### [facility] [address] [address] [address] Josette Mcfarland CO2 [Moles/Vol] 24.8 mmol/L Normal 22.0-30.0 [facility] Comment on above: Performed By: #### C MP #### [facility] [address] [address] [address] Josette Mcfarland Creatinine [Mass/Vol] 1.72 mg/dL Critically high 0.66-1.25 [facility] Comment on above: Performed By: #### C MP #### [facility] [address] [address] [address] Josette Mcfarland EGFR-AF BHUTANESE 50 mL/min/1.73m2 Critically low >=60 [facility] Comment on above: Performed By: #### C MP #### [facility] [address] [address] [address] Josette Mcfarland EGFR-NON AF BHUTANESE 41 mL/min/1.73m2 Critically low >=60 [facility] Comment on above: Performed By: #### C MP #### [facility] [address] [address] [address] Josette Mcfarland Globulin (S) [Mass/Vol] 3.8 g/dL Normal [facility] Comment on above: Performed By: #### C MP #### [facility] [address] [address] [address] Josette Mcfarland Glucose [Mass/Vol] 137 mg/dL Critically high 74-106 T [facility] [place] Comment on above: Performed By: #### C MP #### [facility] [address] [address] [address] Josette Mcfarland Potassium [Moles/Vol] 4.4 mmol/L Normal 3.4-5.0 [facility] Comment on above: Performed By: #### C MP #### [facility] [address] [address] [address] Josette Mcfarland Protein [Mass/Vol] 7.5 g/dL Normal 6.1-8.2 [facility] Comment on above: Performed By: #### C MP #### [facility] [address] [address] [address] Josette Mcfarland Sodium [Moles/Vol] 139 mmol/L Normal 137-145 [facility] Comment on above: Performed By: #### C MP #### [facility] [address] [place], [place] [address] Dr. Josette Mcfarland Urea nitrogen [Mass/Vol] 30.0 mg/dL Critically high 7.0-18.0 [facility] Comment on above: Performed By: #### C MP #### [facility] [address] [place], [place] [address] Dr. Josette Mcfarland Urea nitrogen/Creatinine [Mass ratio] 17.4 mg/mg Normal [facility] Comment on above: Performed By: #### C MP #### [facility] [address] [place], [place] [address] Dr. Josette Mcfarland Encounters Encounter Date Encounter Type Care Provider Facility Start: 11-01-2024 ambulatory ANUJ URENA Facilit y:[facility] Start: 10-26-2024 ambulatory ANUJ URENA Facilit y:[facility] Start: 08-17-2024 ambulatory ANUJ URENA Facilit y:[facility] Start: 06-22-2024 End: 06-22-2024 ambulatory DO ANUJ URENA Facility:[facility] Start: 04-27-2024 End: 04-27-2024 ambulatory ANUJ URENA Facility:[facility] Start: 11-21-2021 End: 11-21-[address] ANUJ URENA Facility:[facility] Start: 09-26-2021 End: 09-27-[address] ANUJ URENA Facility:[facility] Start: 05-01-2021 End: 05-01-[address] ANUJ URENA Facility:[facility] Payers Date Payer Category Payer Private Health Insurance [id number] 2022 Private Health Insurance [id number] 1960 Unknown [id number] 2.16.84 [id number] 1960 Unknown [id number] 2.16.84 [id number] 1962 Unknown [id number] 2.16.84 [id number] 1962 Unknown [id number] 2.16.8 [id number] 1962 Unknown [id number] 2.16.8 [id number] 1962 Unknown [id number] 2.16.8 [id number] 1962 Unknown [id number] 2.16.8 [id number] 1962 Unknown [id number] 2.16.8 [id number] 1957 Medicaid [id number] 1957 Medicare [id number] Medication management note 12-02-2024 Note Date & Type Note Facility 12-02-2024 Note Entered by JUWAN URENA DO on December 02, 2024 10:59:52 EDT From: ANUJ URENA DO To: [facility] Sent: 12/02/2024 10:59:51 EDT Subject: Medication Management Approved with modifications: Misc Rx Supply (BD Insulin Syringe Ultra-Fine 0.3 mL 31 gauge x 5/16 ) USE DIRECTED WITH insulin Qty: 50 EA Days Supply: 50 Refills: 1 Substitutions Allowed Route To Pharmacy - [facility] From: [facility] To: ANUJ URENA DO Sent: December 02, 2024 7:04:32 AM CDT Subject: Medication Management Due: December 03, 2024 12:07:55 AM CDT On Hold Pending Signature Drug: TRUEplus Insulin 0.3 mL 31 gauge x 5/16 syringe, USE DIRECTED WITH insulin Quantity: 50 EA Days Supply: 50 Refills: 1 Substitutions Allowed Notes from Pharmacy: This prescription was filled on 07/07/2024. Any refills authorized will be placed on file. Dispensed Drug: BD Insulin Syringe Ultra-Fine 0.3 mL 31 gauge x 5/16 , USE DIRECTED WITH insulin Quantity: 50 EA Days Supply: 50 Refills: 1 Substitutions Allowed Notes from Pharmacy: [facility] Medication management note 10-11-2024 Note Date & Type Note Facility 10-11-2024 Note Entered by JUWAN URENA DO on October 11, 2024 07:42:43 EDT From: ANUJ URENA DO To: [facility] Sent: 10/11/2024 07:42:43 EDT Subject: Medication Management Submitted: Complete:esomeprazole (esomeprazole 40 mg oral delayed release capsule) Signed by ANUJ URENA DO 10/11/2024 07:42:00 EDT Approved with modifications: esomeprazole (esomeprazole magnesium 40 mg capsule,delayed release) TAKE 1 CAPSULE BY MOUTH DAILY Qty: 30 cap(s) Days Supply: 30 Refills: 5 Substitutions Allowed Route To Pharmacy - [facility] From: [facility] To: ANUJ URENA DO Sent: October [...] Refills: 5 Substitutions Allowed Notes from Pharmacy: [facility] Medication management note 10-04-2024 Note Date & Type Note Facility 10-04-2024 Note Entered by JUWAN URENA DO on October 04, 2024 16:06:58 EDT From: ANUJ URENA DO To: [facility] Sent: 10/04/2024 16:06:58 EDT Subject: Medication Management Submitted: Complete:SITagliptin (Januvia 100 mg oral tablet) Signed by ANUJ URENA DO 10/04/2024 16:06:00 EDT Approved with modifications: SITagliptin (Januvia 100 mg tablet) TAKE 1 TABLET BY MOUTH DAILY Qty: 30 tab(s) Days Supply: 30 Refills: 5 Substitutions Allowed Route To Pharmacy - [facility] From: [facility] To: ANUJ URENA DO Sent: October [...] Refills: 5 Substitutions Allowed Notes from Pharmacy: [facility] Medication management note 08-29-2024 Note Date & Type Note Facility 08-29-2024 Note Entered by JUWAN URENA DO on August 29, 2024 08:19:34 EST From: ANUJ URENA DO To: [facility] Sent: 08/29/2024 08:19:34 EST Subject: Medication Management Submitted: Complete:OXcarbazepine (OXcarbazepine 150 mg oral tablet) Signed by ANUJ URENA DO 08/29/2024 08:19:00 EST Approved with modifications: OXcarbazepine (oxcarbazepine 150 mg tablet) TAKE 1 TABLET BY MOUTH TWICE DAILY Qty: 180 tab(s) Days Supply: 90 Refills: 1 Substitutions Allowed Route To Pharmacy - [facility] Note from Pharmacy: This prescription was filled on 06/10/2024. Any refills authorized will be placed on file. From: [facility] To: ANUJ URENA DO Sent: August 29, 2024 7:04:24 AM TUB OPERATOR Subject: Medication Management Due: August 30, 2024 12:11:10 AM TUB OPERATOR On Hold Pending Signature Drug: OXcarbazepine (OXcarbazepine [...] refills authorized will be placed on file. [facility] Medication management note 08-29-2024 Note Date & Type Note Facility 08-29-2024 Note Entered by JUWAN URENA DO on August 29, 2024 07:41:23 EST From: ANUJ URENA DO To: [facility] Sent: 08/29/2024 07:41:23 EST Subject: Medication Management Submitted: Complete:insulin degludec (Tresiba 100 units/mL subcutaneous solution) Signed by ANUJ URENA DO 08/29/2024 07:41:00 EST Approved with modifications: insulin degludec (Tresiba U-100 Insulin 100 unit/mL subcutaneous solution) INJECT 16 UNITS SUBCUTANEOUSLY (UNDER THE SKIN) DAILY Qty: 10 mL Days Supply: 62 Refills: 5 Substitutions Allowed Route To Pharmacy - [facility] From: [facility] To: ANUJ URENA DO Sent: August 28, 2024 7:02:12 AM TUB OPERATOR Subject: Medication Management Due: August 29, 2024 12:19:30 AM TUB OPERATOR On Hold Pending Signature Drug: insulin degludec (Tresiba 100 units/mL subcutaneous solution), 16 unit(s) Subcutaneous Daily Quantity: 10 mL Days Supply: 0 Refills: 0 Substitutions Allowed Notes from Pharmacy: Dispensed Drug: insulin degludec (Tresiba 100 units/mL subcutaneous solution), INJECT 16 UNITS SUBCUTANEOUSLY (UNDER THE SKIN) DAILY Quantity: 10 mL Days Supply: 62 Refills: 0 Substitutions Allowed Notes from Pharmacy: [facility] Medication management note 08-22-2024 Note Date & Type Note Facility 08-22-2024 Note Entered by JUWAN URENA DO on August 22, 2024 10:26:53 EST From: ANUJ URENA DO To: [facility] Sent: 08/22/2024 10:26:53 EST Subject: Medication [...] 90 Refills: 1 Substitutions Allowed Route To [facility] - [facility] Note from Pharmacy: This prescription was filled on 06/03/2024. Any refills authorized will be placed on file. Approved with modifications: torsemide (torsemide 5 mg tablet) TAKE 1 TABLET BY MOUTH DAILY Qty: 90 tab(s) Days Supply: 90 Refills: 1 Substitutions Allowed Route To Pharmacy - [facility] Note from Pharmacy: This prescription was filled on 06/03/2024. Any refills authorized will be placed on file. From: [facility] To: ANUJ URENA DO Sent: August 22, 2024 7:04:53 AM TUB OPERATOR Subject: Medication Management Due: August 23, 2024 12:02:12 AM TUB OPERATOR On Hold Pending Signature Drug: lisinopril (lisinopril [...] refills authorized will be placed on file. [facility] Medication management note 08-16-2024 Note Date & Type Note Facility 08-16-2024 Note Entered by JUWAN URENA DO on August 16, 2024 08:35:59 EST From: ANUJ URENA DO To: [facility] Sent: 08/16/2024 08:35:59 EST Subject: Medication Management Approved with modifications: !-[facility] Request. (TRUEplus Insulin 0.3 mL 31 gauge x 5/16 syringe) USE DIRECTED WITH insulin Qty: 50 EA Days Supply: 50 Refills: 1 Substitutions Allowed Route To Pharmacy - [facility] Note from Pharmacy: This prescription was filled on 07/07/2024. Any refills authorized will be placed on file. From: [facility] To: ANJU URENA DO Sent: August 16, 2024 7:01:06 AM TUB OPERATOR Subject: Medication Management Due: August 17, 2024 12:03:12 AM TUB OPERATOR On Hold Pending Signature Drug: Trueplus insulin [...] refills authorized will be placed on file. [facility] Medication management note 06-01-2024 Note Date & Type Note Facility 06-01-2024 Note Entered by JUWAN URENA DO on June 01, 2024 08:41:15 EST From: ANUJ URENA DO To: [facility] Sent: 06/01/2024 08:41:14 EST Subject: Medication Management Submitted: Complete:simvastatin (simvastatin 20 mg oral tablet) Signed by ANUJ URENA DO 06/01/2024 08:41:00 EST Approved with modifications: simvastatin (simvastatin 20 mg tablet) TAKE 1 TABLET BY MOUTH EVERY EVENING Qty: 30 tab(s) Days Supply: 30 Refills: 5 Substitutions Allowed Route To Pharmacy - [facility] Note from Pharmacy: This prescription was filled on 04/12/2024. Any refills authorized will be placed on file. From: [facility] To: ANUJ URENA DO Sent: June 01, 2024 7:00:31 AM TUB OPERATOR Subject: Medication Management Due: June 02, 2024 12:03:57 AM TUB OPERATOR On Hold Pending Signature Drug: simvastatin (simvastatin [...] refills authorized will be placed on file. [facility] Medication management note 03-29-2024 Note Date & Type Note Facility 03-29-2024 Note Entered by JUWAN URENA DO on March 29, 2024 08:33:25 EDT From: ANUJ URENA DO To: [facility] Sent: 03/29/2024 08:33:25 EDT Subject: Medication [...] 5 Substitutions Allowed Route To Pharmacy - [facility] Note from Pharmacy: This prescription was filled on 01/09/2024. Any refills authorized will be placed on file. Approved with modifications: SITagliptin (Januvia 100 mg tablet) TAKE 1 TABLET BY MOUTH DAILY Qty: 30 tab(s) Days Supply: 30 Refills: 5 Substitutions Allowed Route To Pharmacy - [facility] Note from Pharmacy: This prescription was filled on 01/09/2024. Any refills authorized will be placed on file. From: [facility] To: ANUJ URENA DO Sent: March [...] refills authorized will be placed on file. [facility] Medication management note 03-02-2024 Note Date & Type Note Facility 03-02-2024 Note Entered by JUWAN URENA DO on March 02, 2024 09:57:14 EDT From: ANUJ URENA DO To: [facility] Sent: 03/02/2024 09:57:14 EDT Subject: Medication [...] 90 Refills: 1 Substitutions Allowed Route To [facility] Approved with modifications: torsemide (torsemide 5 mg tablet) TAKE 1 TABLET BY MOUTH DAILY Qty: 90 tab(s) Days Supply: 90 Refills: 1 Substitutions Allowed Route To [facility] Approved with modifications: lisinopril (lisinopril 2.5 mg tablet) TAKE 1 TABLET BY MOUTH DAILY Qty: 90 tab(s) Days Supply: 90 Refills: 1 Substitutions Allowed Route To [facility] From: [facility] To: ANUJ URENA DO Sent: March [...] Refills: 1 Substitutions Allowed Notes from Pharmacy: [facility] Summary Purpose Family History No Family History Records FoundNo Family History Records Found Advance Directives No Advanced Directives Records FoundNo Advanced Directives Records Found Additional Source Comments (unrecognized sect ion and content) No Status Records FoundNo Status Records Found INFORMATION SOURCE (unrecogn ized section and content) DATE CREATED AUTHOR 11/23/2021 [facility] DATE CREATED AUTHOR 'S ZORAIDA ATJAYDA 12/04/2024 [facility] FOR RECORDS PERTAINING TO PATIENTS WHO ARE [...] BE BASED ON THE PRIMARY CLINICAL RECORDS. [facility]. provides no warranty or guarantee of the accuracy or completeness of information in this document.
[2024-12-06 19:04] VITALS: BP 96/65; PULSE 75; TEMP 37; O2SAT 96; BMI 30.7
--- NOTE | 2024-12-06 19:14 | ED_ITS ---
HPI HPI - Back Pain/Injury General Chief Complaint: Back Pain/Injury Stated Complaint: Back pain Time Seen by Provider: 12/06/24 19:07 Source: patient Mode of arrival: walk-in Limitations: no limitations History of Present Illness HPI Narrative: 64 year old male presents to the ED for right mid back pain. Onset was yesterday after lifting a larger piece of wood. The pain is worse with movement and palpation. Denies urinary symptoms, fever, chills, N/T to his extremities. Denies saddle anesthesia and change in bowel and/or bladder control. Related Data Previous Rx's ?Medication ?Instructions ?Recorded prednisone 10 mg tablet See Rx Instructions .Route 0 12/06/24 .COMPLEX #30 tabs tizanidine 4 mg capsule (Zanaflex) 4 mg PO Q8H PRN mus nkechi spasticity 12/06/24 #15 caps Allergies Allergy/AdvReac Type Severity Reaction Status Date / Time NSAIDS (Non-Steroidal Allergy Unknown Unknown Verified 12/06/24 19:08 Anti-Inflamma Opioid HPI Opioid Management Most Recent Opioid Data: Last Pain Scale 8 Today, 19:09 Review of Systems ROS Constitutional Denies: fever, chills or fatigue Cardiovascular Denies: chest pain Respiratory Denies: shortness of breath Gastrointestinal Denies: abdominal pain, nausea, vomiting or diarrhea Genitourinary Denies: painful urination, urinary frequency, urinary urgency or blood in urine Musculoskeletal Reports: back pain; Denies: neck pain or extremity pain Integumentary/Breast Denies: rash Neurological Denies: headache, numbness in extremities or weakness in extremities PFSH PFSH Social History Little interest or pleasure in doing things: not at all Feeling down, depressed, or hopeless: not at all Exam Constitutional Vital Signs, click to edit/add: Last Vital Signs Temp 98.6 F 12/06/24 19:04 Pulse 75 12/06/24 19:04 Resp 16 12/06/24 19:04 BP 96/65 12/06/24 19:04 Pulse Ox 96 12/06/24 19:04 O2 Del Method Room Air 12/06/24 19:04 Common normals: no apparent distress and oriented x3 General appearance: cooperative HENMT Common normals: moist oral mucous membranes Eye Common normals: conjunctivae normal and no scleral icterus Neck & C-Spine Common normals: supple Cervical spine: no cervical spine tenderness and no paracervical muscle tenderness Chest Chest: symmetrical chest wall rise Respiratory Common normals: normal respiratory effort Effort & inspection: able to speak in complete sentences and symmetric chest movement Cardio Common normals: regular rate Back & Pelvis Thoracic spine/upper back: normal to inspection, paraspinal muscle tenderness Thoracic paraspinal muscle tenderness: right and paraspinal muscle spasm Thoracic paraspinal muscle spasm: right; no thoracic spinal tenderness Lumbar spine/lower back: normal to inspection; no lumbar spinal tenderness and no paraspinal muscle tenderness Neuro Common normals: oriented x3, moves all extremities and no focal motor deficits Sensorium/orientation: awake and alert Speech: speech normal Gait (neuro): normal gait Course Vital Signs Vital signs: Vital Signs Temperature 98.6 F 12/06/24 19:04 Pulse Rate 75 12/06/24 19:04 Respiratory Rate 16 12/06/24 19:04 Blood Pressure 96/65 12/06/24 19:04 Pulse Oximetry 96 12/06/24 19:04 Oxygen Delivery Method Room Air 12/06/24 19:04 Temperature 98.6 F 12/06/24 19:04 Pulse Rate 75 12/06/24 19:04 Respiratory Rate 16 12/06/24 19:04 Blood Pressure 96/65 12/06/24 19:04 Pulse Oximetry 96 12/06/24 19:04 Oxygen Delivery Method Room Air 12/06/24 19:04 MDM - Back Pain/Injury MDM Narrative Medical decision making narrative: The patient was medicated for his discomfort here with Lidoderm, Decadron, and Zanaflex. He reported an allergy to NSAIDS. Prescriptions were provided for Zanaflex and prednisone. Follow up with pcp for a recheck, further evaluation and treatment. Medical Records Attestation: I reviewed the patient's medical records. Discharge Plan Discharge Chief Complaint: Back Pain/Injury Clinical Impression: Back strain Patient Disposition: Home, Self-Care Time of Disposition Decision: 19:12 Condition: Good Mode of Transportation: Private Vehicle Prescriptions / Home Meds: New prednisone 10 mg tablet See Rx Instructions .ROUTE .COMPLEX Qty: 30 0RF Rx Instructions: Take 5 tablets on days 1-2, 4 tabs on days 3-4, 3 tabs on days 5-6, 2 tabs on days 7-8, 1 tab on days 9-10. tizanidine [Zanaflex] 4 mg capsule 4 mg PO Q8H PRN (Reason: muscle spasticity) Qty: 15 0RF Print Language: Pakistani Instructions: Back Pain (ED) Additional Instructions: Return to the ER for worsening symptoms. Referrals: ANUJ URENA [Primary Care Provider, Family Practice] - 1 week
[2024-12-06] MEDS: LIDOCAINE 5% PATCH 1 PATCH TOPICAL (19:26)
[2024-12-06] MEDS: TIZANIDINE HCL 4 MG TABLET 2 MG PO (19:27)
[2024-12-06] MEDS: DEXAMETHASONE SOD PHOS 10 MG/ML VIAL IM (19:27)
== END 2024-12-06 19:33 | disposition home or self-care (01) ==
PROVIDERS: Emergency Provider Emergency Medicine; PCP Family Medicine
DX: S29.012A Strain of muscle and tendon of back wall of thorax, initial encounter (principal); X50.0XXA Overexertion from strenuous movement or load, initial encounter
CPT/HCPCS: 96372; 99284; J1100